=== PATIENT | male | born 2000 | race Caucasian/White ===

== ENCOUNTER → 2024-09-11 07:43 | Outpatient (CLI) | payer OTHER, SELFPAY ==
--- NOTE | 2024-09-11 07:46 | DI.MRI.S_ITS ---
PROCEDURE: MR WRIST LT WO CON INDICATIONS: LT WRIST PAIN TECHNIQUE: Noncontrast coronal proton density fast spin echo and T2 fast spin echo with fat saturation; coronal 3-D gradient echo, axial T1 spin echo and T2 fast spin echo with fat saturation, sagittal T1 spin echo through the wrist. COMPARISON: None. FINDINGS: Image quality: Excellent. Bones and cartilage: The carpal bones are normally aligned. No bone marrow contusions or fractures. No evidence for avascular necrosis. Overlying cartilage surfaces appear normal. Carpal ligaments: The scapholunate and lunotriquetral ligaments appear intact. In the absence of intra-articular contrast, the extrinsic carpal ligaments are not well identified. On sagittal images, the pisohamate ligament appears intact. Triangular fibrocartilage complex: There is signal abnormality involving triangular fibrocartilage near its ulnar insertion concerning for TFC tear. The extensor carpi ulnaris tendon is thickened with intrasubstance T2 hyperintense signal at the level of ulnar styloid. Tendons and soft tissues: The carpal tunnel structures appear normal, including the median nerve. The ulnar nerve appears normal within Guyon's canal. All six extensor tendon compartments demonstrate normal morphology, without pathologic tendon sheath fluid. No soft tissue ganglion cysts. IMPRESSION: 1. No marrow edema. No fracture or dislocation. No evidence of avascular necrosis. 2. Scapholunate and lunotriquetral ligaments are intact. 3. Finding is suggestive of triangular fibrocartilage tear near its ulnar insertion. 4. Tendinosis and low-grade intrasubstance partial-thickness tear involving extensor carpi ulnaris tendon at the level of ulnar styloid. Dictated by: Damian Samayoa M.D. on 09/11/2024 at 14:55 Approved by: Damian Samayoa M.D. on 09/11/2024 at 15:06
== END ==
LOC: MRI 07:44
PROVIDERS: PCP Student in an Organized Health Care Education/Training Program; Referring Provider Student in an Organized Health Care Education/Training Program; Visit Provider Student in an Organized Health Care Education/Training Program
DX: S66.812A Strain of other specified muscles, fascia and tendons at wrist and hand level, left hand, initial encounter (principal); M25.532 Pain in left wrist
CPT/HCPCS: 73221